=== PATIENT | female | born 1965 | race Hispanic/Latino ===

== ENCOUNTER 2018-03-25 11:55 | Outpatient (CLI) | payer BC | END 2018-03-25 11:56 | disposition home or self-care (01) | LOC: BICMAMMO 11:55 | PROVIDERS: ATTEND Internal Medicine | DX: Z12.31 Encounter for screening mammogram for malignant neoplasm of breast (principal); Z80.3 Family history of malignant neoplasm of breast | CPT/HCPCS: 77063; 77067 ==

== ENCOUNTER 2018-07-24 07:34 | Outpatient (CLI) | payer BC ==
--- NOTE | 2018-07-24 09:48 | MRI ---
MRI CERVICAL SPINE WITHOUT CONTRAST: HISTORY: Two months of neck pain, radiation down the left shoulder. COMPARISON: None. TECHNIQUE: Cervical spine MRI is performed without intravenous Gadolinium administration. Multisequential, mult iplanar imaging was performed. FINDINGS: Appropriate T1 marrow signal intensity of the cervical vertebrae. Vertebral body height is maintaine d. There is no fracture. No significant STIR hyperintensity to suggest vertebral body edema or liga mentous injury. There is 2 mm of anterolisthesis of C2 upon C3, 2.5 mm anterolisthesis of C3 upon C4. Visualized brain parenchyma, cervicomedullary junction, cervical cord, and the upper thoracic cord sandoval ve a normal size and signal intensity. Based on the sagittal STIR images, diffuse scattered nonspecific right neck lymph nodes. C2-C3: No significant disk-osteophyte complex. No significant central canal stenosis. Neural maci en are patent. C3-C4: No significant disk-osteophyte complex. No significant central canal stenosis. Minimal righ t foraminal narrowing due to degenerative change of the uncovertebral joint and facet hypertrophy. L eft neural foramen is patent. C4-5: Central disk bulge abuts the thecal sac. No significant central canal stenosis. Neural maci en are patent bilaterally. C5-C6: There is a central disk bulge that deforms the thecal sac. Mild central canal stenosis. Min imal deformity of the cervical cord. No abnormal signal intensity in the ord. Right neural foramen is patent. Minimal left foraminal narrowing due to degenerative change of the uncovertebral joint. C6-C7: Central/left paracentral disk bulge abuts the thecal sac. Ventral subarachnoid space is effa fina. There is mild deformity of the cord. Mild to moderate central canal stenosis. No signal abnor mality in the cord. Neural foramina are patent bilaterally. C7-T1: No significant central canal stenosis. Neural foramina are patent. IMPRESSION: Mild to moderate central/left paracentral canal stenosis at C6-C7. POS: [facility]
== END 2018-07-24 07:35 | disposition home or self-care (01) ==
LOC: BICMRI 07:34
PROVIDERS: ATTEND Internal Medicine
DX: M54.2 Cervicalgia (principal); M48.02 Spinal stenosis, cervical region
CPT/HCPCS: 72141

== ENCOUNTER 2018-10-10 15:48 | Outpatient (CLI) | payer OTHER | END 2018-10-10 15:49 | disposition home or self-care (01) | LOC: DTY/OP 15:48 | PROVIDERS: ATTEND Surgery | DX: E66.01 Morbid (severe) obesity due to excess calories (principal); G47.30 Sleep apnea, unspecified | CPT/HCPCS: 97802 ==

== ENCOUNTER 2018-12-02 10:55 | Outpatient (CLI) | payer BC ==
--- NOTE | 2018-12-02 11:50 | CT ---
FCT Abdomen Pelvis W Con History: [Epigastric pain] Comparison: CT abdomen and pelvis from 2014 Findings: Lung bases are clear. No pericardial effusion. Cholecystectomy. There are no dilated loops of large or small bowel. The aortic contour is nonaneurysmal. No retroperi toneal adenopathy. The spleen, pancreas, adrenal glands, kidneys are unremarkable. No acute osseous abnormality. Advanced facet arthrosis lower lumbar spine. Impression: No acute inflammatory process within the abdomen or pelvis.
[2018-12-02] MEDS ORDERED: ISOVUE-370 76%-LOCM 1 ML ONE (11:58)
== END 2018-12-02 10:56 | disposition home or self-care (01) ==
LOC: BICCT 10:55
PROVIDERS: ATTEND Internal Medicine Gastroenterology
DX: K21.9 Gastro-esophageal reflux disease without esophagitis (principal); R10.13 Epigastric pain; Z86.010 Personal history of colon polyps
CPT/HCPCS: 74177; Q9966

== ENCOUNTER 2019-03-17 16:15 | Inpatient (IN) | payer BC ==
[2019-03-18 13:00] VITALS: BMI 51.0
[2019-03-19] MEDS ORDERED: Heparin 5,000 UNITS/ML VIAL ONE (07:38)
[2019-03-19] MEDS ORDERED: Scopolamine 1.5 mg/72 hour Patch ONE (08:42)
[2019-03-19] MEDS ORDERED: Fentanyl 100 MCG/2 ML VIAL ONE ×2 (08:55→11:39)
[2019-03-19] MEDS ORDERED: Bupivacaine/Epinephrine 0.25% 30 ML VIAL ONE (08:57)
[2019-03-19] MEDS ORDERED: Dextrose 5% in Water 1,000 ML IV PRN (11:15)
[2019-03-19] MEDS ORDERED: Hydrocodone-Acetamin 15 ML UDCUP PO PRN ×2 (11:15→12:12)
[2019-03-19] MEDS ORDERED: diphenhydrAMINE 50 MG/ML VIAL IVP PRN ×2 (11:15→12:08)
[2019-03-19] MEDS ORDERED: Promethazine HCl 25 MG/ML VIAL IM PRN ×3 (11:15→12:08)
[2019-03-19] MEDS ORDERED: CEFAZOLIN 2 GM in Premix Bag 1 BAG IVPB SCH ×2 (11:15→15:30)
[2019-03-19] MEDS ORDERED: hydrALAZINE 20 MG/ML VIAL SLOW IVP PRN (11:15)
[2019-03-19] MEDS ORDERED: Dextrose 50% Abboject 50 ML SYRINGE SLOW IVP PRN (11:15)
[2019-03-19] MEDS ORDERED: Ondansetron PF 4 MG/2 ML Vial IVP PRN ×2 (11:15→12:08)
[2019-03-19] MEDS ORDERED: Meperidine HCl/PF 25 MG/ML VIAL SLOW IVP PRN (11:33)
[2019-03-19] MEDS ORDERED: Ondansetron HCl/PF 4 MG/2 ML Vial IVP PRN (11:33)
[2019-03-19] MEDS ORDERED: fentaNYL Citrate/PF 2,000 MCG in Sodium Chloride 0.9% 60 ML IV PRN (12:08)
[2019-03-19] MEDS ORDERED: diphenhydrAMINE 50 MG/ML VIAL IM PRN (12:08)
[2019-03-19] MEDS ORDERED: diphenhydrAMINE 25 MG CAP PO PRN (12:08)
[2019-03-19] MEDS ORDERED: Naloxone HCl 0.4 mg/ml Vial IV PRN (12:08)
[2019-03-19] MEDS ORDERED: Zolpidem Tartrate 5 MG TAB PO PRN (12:08)
[2019-03-19] MEDS ORDERED: Ketorolac Tromethamine 30 MG/ML VIAL ONE (12:15)
[2019-03-19] MEDS ORDERED: Metoclopramide HCl 10 MG/2 ML VIAL ONE (12:15)
[2019-03-19] MEDS ORDERED: ePHEDrine 50 MG/ML VIAL ONE (12:15)
[2019-03-19] MEDS ORDERED: Rocuronium Bromide 10 MG/ML (10ML VIAL) ONE (12:15)
[2019-03-19] MEDS ORDERED: Communication Order-Pharmacy FS SCH (12:15)
[2019-03-19] MEDS ORDERED: Dexamethasone 20 MG/5 ML VIAL ONE (12:15)
[2019-03-19] MEDS ORDERED: PROPOFOL 200 MG/20 ML VIAL ONE (12:15)
[2019-03-19] MEDS ORDERED: Ondansetron PF 4 MG/2 ML Vial ONE (12:15)
[2019-03-19] MEDS ORDERED: Lidocaine 2% PF 5 ML VIAL ONE (12:15)
[2019-03-19] MEDS ORDERED: diphenhydrAMINE 50 MG/ML VIAL ONE (12:15)
[2019-03-19] MEDS ORDERED: Glycopyrrolate 0.2 MG/ML 5 ML SYRINGE ONE ×2 (12:15)
--- NOTE | 2019-03-19 14:34 | OP ---
DATE OF PROCEDURE: 03/19/2019 PREOPERATIVE DIAGNOSES: Morbid obesity with reflux esophagitis. PROCEDURES PERFORMED: Laparoscopic Dorothy-en-Y gastric bypass with esophagogastroduodenoscopy. INDICATIONS: The patient is a 53-year-old female, morbidly obese, who has attempted multiple weight loss programs without success. She has severe reflux that is not controlled by medications with reflux esophagitis by EGD. FINDINGS: 100 cm Dorothy limb, 50 cm biliary pancreatic limb. DESCRIPTION OF PROCEDURE: After informed consent was obtained, the patient was taken to the operating room, given general endotracheal anesthesia, placed in supine position. Abdomen was prepped and draped in usual fashion. Local anesthesia was infiltrated subcutaneously and deep. 12 mm incision was performed approximately 8 inches above the xiphoid slightly to the left. Veress needle was inserted. Drop test was performed. Pneumoperitoneum was created to a volume of 2 L of carbon dioxide. Utilizing a bladeless 12 mm trocar and 0-degree laparoscope, direct visual entry into abdominal cavity was performed. Pneumoperitoneum was created to a pressure of 15 mmHg and under direct vision, two 12 mm ports were placed on the right and one on the left. The omentum was lifted up to and the ligament of Treitz was found. The jejunum was measured off 100 cm. Then, the jejunum divided transversely utilizing a linear 60 mm white load stapler. Then, the Dorothy limb was created 100 cm of jejunum was measured off and a [id number] functional end-to-end anastomosis was performed. Enterotomies were performed in each loop of bowel. The linear 60 mm white load stapler was inserted one limb in each limb of bowel, fired. There was no bleeding. The common enterotomy was then closed with a running 3-0 V-Loc. The potential hernia space of Raza was closed with a pursestring of 2-0 silk. Then, the patient was placed in steep reverse Trendelenburg position. Renetta liver retractor inserted. Left lobe of liver retracted superiorly, the lesser curvature was found. The right gastric artery visualized and just distal to it, a transverse gastrotomy was performed into the lesser sac. Then, the pouch was further developed superiorly with a series of blue graham through the angle of His. At this point, the omentum was split to accommodate the Dorothy limb. The Dorothy limb was again found. An enterotomy was performed approximately 8 cm distal to the staple line. Then, a gastrotomy was performed utilizing electrocautery followed by the [place] dissector. The linear 60 mm blue load stapler was inserted one limb in the Dorothy limb, one limb in the gastric pouch, closed, and fired. Then, the common enterotomy was closed with a running 3-0 V-Loc. Intraoperative endoscopy was then performed. The videoendoscope was inserted under direct vision and advanced into the gastric pouch and into the Dorothy limb. The anastomosis looked healthy. There was no evidence of bleeding and there was no air leak under water. The Dorothy limb and stomach decompressed. The scope was removed. Hemostasis was assured. Trocars and retractors were removed. The skin was closed with interrupted 4-0 Rapide. Dermabond was applied. The patient tolerated the procedure well and transferred to Recovery in good condition. Sponge and needle count verified correct x2. Job ID: [id number]
[2019-03-19] MEDS: Ketorolac Tromethamine 30 MG/ML VIAL IVP SCH ×3 (15:26→23:22)
[2019-03-19] MEDS: D5 1/2 NS w/20 mEq KCL 1,000 ML IV SCH ×3 (17:15→23:27)
[2019-03-19] MEDS: CEFAZOLIN 2 GM in Premix Bag 1 BAG IVPB SCH ×2 (17:15→23:21)
[2019-03-20] MEDS: Ketorolac Tromethamine 30 MG/ML VIAL IVP SCH ×2 (05:01→13:24)
[2019-03-20 06:41] LABS: #Lymphocytes 2.2 thou/uL (1.20-3.40); #Neutrophils 11.2 thou/uL (1.40-6.50); %Basophils 0.2 % (0.0-1.0); %Eosinophils 0.2 % (0.0-10.0); %Lymphocytes 15.3 % (21.0-51.0); %Monocytes 7.2 % (0.0-10.0); Hemoglobin 11.2 g/dL (12.0-16.0); Mean Corpuscular HGB CONC 31.8 g/dL (32.0-36.0); Mean Corpuscular Hemoglobin 26.4 pg (27.0-31.0); Mean Corpuscular Volume 82.9 fL (78.0-98.0); Mean Platelet Volume 9.9 fL (7.4-10.4); Platelet Count 203 thou/uL (130-400); RBC Distribution Width 12.9 % (11.5-14.5); Red Blood Cell (RBC) Count 4.26 mill/uL (4.20-5.40); White Blood Cell (WBC) Count 14.5 thou/uL (4.8-10.8)
[2019-03-20 07:01] LABS: Anion Gap 10 mmol/L (10-20); BUN (Urea Nitrogen) 16 mg/dL (9.8-20.1); Calc. Creatinine Clearance 159 mL/min (70-130); Calcium 8.7 mg/dL (7.8-10.44); Carbon Dioxide 23 mmol/L (22-29); Chloride 107 mmol/L (98-107); Estimated GFR-MDRD 78; Glucose 121 mg/dL (70-105); Potassium 4.2 mmol/L (3.5-5.1); Sodium 136 mmol/L (136-145)
[2019-03-20] MEDS ORDERED: Enoxaparin Sodium 40 MG/0.4 ML SYRINGE SC SCH (09:00)
[2019-03-20] MEDS ORDERED: Pantoprazole 40 MG VIAL IVP SCH (09:00)
[2019-03-20] MEDS ORDERED: Hydrocodone-Acetamin 15 ML UDCUP PO PRN (12:44)
--- NOTE | 2019-03-20 12:59 | RAD ---
Esophagram HISTORY: Obesity. Bariatric procedure. FINDINGS: Single column contrast evaluation shows postoperative changes consistent with gastric bypas s procedure. No evidence of obstruction or leak. Fluoroscopy time 0.3 minutes.
[2019-03-20] MEDS: D5 1/2 NS w/20 mEq KCL 1,000 ML IV SCH (13:24)
[2019-03-20 15:57] VITALS: BP 136/80; TEMP 97.9
--- NOTE | 2019-03-21 08:36 | DIS ---
DATE OF ADMISSION: 03/19/2019 DATE OF DISCHARGE: 03/20/2019 DISCHARGE DIAGNOSES: 1. Morbid obesity. 2. Severe gastroesophageal reflux. PROCEDURES DURING ADMISSION: Laparoscopic Dorothy-en-Y gastric bypass with intraoperative esophagogastroscopy and postoperative Gastrografin swallow. HOSPITAL COURSE: The patient was admitted, taken to the operating room, where she underwent a Dorothy-en-Y gastric bypass. Postoperatively, she has done well. Her x-ray is fine. She is tolerating liquids well. Pain is controlled on p.o. medications. She is discharged home on hydrocodone and Zofran. She will follow up with me in 2 weeks. Job ID: [id number]
== END 2019-03-20 18:30 | disposition home or self-care (01) | DRG 621 ==
LOC: SURG A 03-19 07:00 → SURG B 03-19 14:43
PROVIDERS: ADMIT Surgery; ATTEND Surgery
PROC: 0D164ZA Bypass Stomach to Jejunum, Percutaneous Endoscopic Approach (ICD-10-PCS; principal; 2019-03-19)
PROC: 0DJ08ZZ Inspection of Upper Intestinal Tract, Via Natural or Artificial Opening Endoscopic (ICD-10-PCS; 2019-03-19)
DX: E66.01 Morbid (severe) obesity due to excess calories (principal); K21.9 Gastro-esophageal reflux disease without esophagitis; I10 Essential (primary) hypertension; G47.30 Sleep apnea, unspecified; Z99.89 Dependence on other enabling machines and devices; D64.9 Anemia, unspecified; E03.9 Hypothyroidism, unspecified; F41.9 Anxiety disorder, unspecified; F32.9 Major depressive disorder, single episode, unspecified; Z68.43 Body mass index [BMI] 50.0-59.9, adult; Z90.49 Acquired absence of other specified parts of digestive tract; Z91.018 Allergy to other foods
CPT/HCPCS: 36415; 71046; 74241; 80048; 80053; 80076; 83036; 85025; 93005; 93010; C9113; J0131; J0690; J1100; J1200; J1644; J1650; J1885; J2001; J2405; J2704; J2765; J3010; J3490

== ENCOUNTER 2019-03-18 12:20 | Outpatient (CLI) | payer BC ==
[2019-03-18 14:08] LABS: #Basophils 0.1 thou/uL (0.0-0.2); #Eosinphils 0.3 thou/uL (0.0-0.7); #Lymphocytes 3.7 thou/uL (1.20-3.40); #Monocytes 0.6 thou/uL (0.11-0.59); #Neutrophils 4.1 thou/uL (1.40-6.50); %Basophils 1.1 % (0.0-1.0); %Eosinophils 3.7 % (0.0-10.0); %Lymphocytes 42.2 % (21.0-51.0); %Monocytes 6.3 % (0.0-10.0); %Neutrophils 46.7 % (42.0-75.0); Hemoglobin 13.6 g/dL (12.0-16.0); Mean Corpuscular HGB CONC 31.4 g/dL (32.0-36.0); Mean Corpuscular Hemoglobin 26.1 pg (27.0-31.0); Mean Corpuscular Volume 82.9 fL (78.0-98.0); Mean Platelet Volume 9.7 fL (7.4-10.4); Platelet Count 237 thou/uL (130-400); RBC Distribution Width 12.8 % (11.5-14.5); White Blood Cell (WBC) Count 8.9 thou/uL (4.8-10.8)
[2019-03-18 14:13] LABS: Hemoglobin A1c 5.5 % (4.0-6.0)
--- NOTE | 2019-03-18 14:21 | RAD ---
PA AND LATERAL CHEST: HISTORY: Preop. COMPARISON: 06/12/2014 study. FINDINGS: Heart size and mediastinum within normal limits. There is some linear scarring in the left base. No focal infiltrative process. Mild arthritic changes of the spine. IMPRESSION: No active intrathoracic disease. POS: [facility]
[2019-03-18 14:37] LABS: ALT (SGPT) 24 U/L (8-55); AST (SGOT) 21 U/L (5-34); Alkaline Phosphatase 139 U/L (40-150); Anion Gap 11 mmol/L (10-20); BUN (Urea Nitrogen) 10 mg/dL (9.8-20.1); Bilirubin, Direct 0.1 mg/dL (0.1-0.3); Bilirubin, Total 0.4 mg/dL (0.2-1.2); Calc. Creatinine Clearance 0 mL/min (70-130); Calcium 9.5 mg/dL (7.8-10.44); Carbon Dioxide 26 mmol/L (22-29); Chloride 104 mmol/L (98-107); Estimated GFR-MDRD 81; Globulin 3.6 g/dL (2.4-3.5); Glucose 75 mg/dL (70-105); Protein, Total 7.6 g/dL (6.0-8.3); Sodium 137 mmol/L (136-145)
--- NOTE | 2019-03-18 17:16 | EKG ---
Test Reason : Blood Pressure : / mmHG Vent. Rate : 047 BPM Atrial Rate : 047 BPM P-R Int : 148 ms QRS Dur : 100 ms QT Int : 510 ms P-R-T Axes : 040 076 055 degrees QTc Int : 451 ms Marked sinus bradycardia Abnormal ECG When compared with ECG of 04-OCT-2013 14:04, No significant change was found Confirmed by DR. Dev GRIFFIN ([id number]) on 03/18/2019 5:16:02 PM Referred By: CELIA Confirmed By:DR. Dev GRIFFIN
== END 2019-03-18 12:21 | disposition home or self-care (01) ==
LOC: LABBT 12:20
PROVIDERS: ATTEND Surgery
DX: Z01.818 Encounter for other preprocedural examination (principal); E66.01 Morbid (severe) obesity due to excess calories
CPT/HCPCS: 71046; 80053; 80076; 83036; 85025; 93005; 93010

== ENCOUNTER 2019-04-18 14:39 | Outpatient (CLI) | payer BC ==
--- NOTE | 2019-04-22 06:47 | MMO ---
Bilateral MAMMO Bilat Screen DDI+JAYY. CLINICAL HISTORY: Patient is 53 years old and is seen for screening. The patient has the following family history of breast cancer: maternal aunt, at age 30 and cousin female, at age 27. The patient has no personal history of cancer. VIEWS: The views performed were: bilateral craniocaudal; bilateral craniocaudal with tomosynthesis; bilateral mediolateral oblique with tomosynthesis; and left mediolateral oblique. FILMS COMPARED: The present examination has been compared to prior imaging studies performed at [facility] on 03/25/2018, and at [facility] on 12/24/2013. MAMMOGRAM FINDINGS: There are scattered fibroglandular densities. There are stable intramammary lymph nodes seen in both breasts. There are no suspicious masses, suspicious calcifications, or new areas of architectural distortion. IMPRESSION: THERE IS NO MAMMOGRAPHIC EVIDENCE OF MALIGNANCY. A ROUTINE FOLLOW-UP MAMMOGRAM IN 1 YEAR IS RECOMMENDED. THE RESULTS OF THIS EXAM WERE SENT TO THE PATIENT. ACR BI-RADS Category 2 - Benign finding MAMMOGRAPHY NOTE: 1. A negative mammogram report should not delay a biopsy if a dominant of clinically suspicious mass is present. 2. Approximately 10% to 15% of breast cancers are not detected by mammography. 3. Adenosis and dense breasts may obscure an underlying neoplasm. Reported by: JOHN BUTTS MD Electonically Signed: [id number]
== END 2019-04-18 14:40 | disposition home or self-care (01) ==
LOC: BICMAMMO 14:39
PROVIDERS: ATTEND Internal Medicine
DX: Z12.31 Encounter for screening mammogram for malignant neoplasm of breast (principal); Z80.3 Family history of malignant neoplasm of breast
CPT/HCPCS: 77063; 77067

== ENCOUNTER 2019-05-19 12:03 | Emergency (ER) | payer BC ==
[2019-05-19 12:55] LABS: Bacteria/HPF None Seen HPF (None Seen); Bilirubin Negative (Negative); Blood, Urine Negative (Negative); Clarity Clear (Clear); Glucose, Urine (Dipstick) Normal (Negative); Leukocyte Negative Leu/uL (Negative); Nitrite Negative (Negative); Protein, Urine (Dipstick) 30 mg/dL (Neg-Trace); Squamous Epithelial 0-3 HPF (0-3); WBC/HPF 0-3 HPF (0-3)
[2019-05-19 12:56] LABS: #Eosinphils 0.1 thou/uL (0.0-0.7); #Monocytes 0.4 thou/uL (0.11-0.59); #Neutrophils 7.4 thou/uL (1.40-6.50); %Basophils 0.3 % (0.0-1.0); %Eosinophils 0.9 % (0.0-10.0); %Lymphocytes 20.6 % (21.0-51.0); %Monocytes 3.9 % (0.0-10.0); %Neutrophils 74.4 % (42.0-75.0); Hemoglobin 12.9 g/dL (12.0-16.0); Mean Corpuscular HGB CONC 33.1 g/dL (32.0-36.0); Mean Corpuscular Hemoglobin 27.7 pg (27.0-31.0); Mean Corpuscular Volume 83.6 fL (78.0-98.0); Mean Platelet Volume 10.1 fL (7.4-10.4); Platelet Count 201 thou/uL (130-400); Red Blood Cell (RBC) Count 4.67 mill/uL (4.20-5.40); White Blood Cell (WBC) Count 9.9 thou/uL (4.8-10.8)
[2019-05-19 13:06] LABS: Calcium Oxalate Crystals 2+ HPF (None Seen); RBC/HPF 0-3 HPF (0-3)
[2019-05-19] MEDS ORDERED: ISOVUE-370 76%-LOCM 1 ML ONE (13:17)
[2019-05-19 13:20] LABS: ALT (SGPT) 24 U/L (8-55); AST (SGOT) 23 U/L (5-34); Albumin 4.1 g/dL (3.5-5.0); Alkaline Phosphatase 119 U/L (40-150); Anion Gap 10 mmol/L (10-20); BUN (Urea Nitrogen) 18 mg/dL (9.8-20.1); Bilirubin, Total 0.3 mg/dL (0.2-1.2); Calc. Creatinine Clearance 0 mL/min (70-130); Calcium 9.7 mg/dL (7.8-10.44); Carbon Dioxide 27 mmol/L (22-29); Chloride 105 mmol/L (98-107); Estimated GFR-MDRD 79; Globulin 3.4 g/dL (2.4-3.5); Glucose 129 mg/dL (70-105); Lipase 7 U/L (8-78); Potassium 3.8 mmol/L (3.5-5.1); Protein, Total 7.5 g/dL (6.0-8.3); Sodium 138 mmol/L (136-145)
[2019-05-19] MEDS ORDERED: Ondansetron PF 4 MG/2 ML Vial ONE (15:54)
[2019-05-19] MEDS ORDERED: Ketorolac Tromethamine 30 MG/ML VIAL ONE (15:54)
[2019-05-19] MEDS ORDERED: Thiamine 100 MG TAB ONE (16:17)
--- NOTE | 2019-05-19 17:01 | CT ---
CT ABDOMEN PELVIS WITH ORAL AND IV CONTRAST: HISTORY: Abdominal pain, nausea and vomiting, diarrhea. No fever. Decreased urine output but no dysur ia COMPARISON: 12/02/2018 FINDINGS: The lung bases are clear. The patient is post cholecystectomy and gastric surgery. The liver, spleen, pancreas, adrenal glands and kidneys are normal. Retroaortic left renal vein is seen. There is no evidence of aneurysmal dilatation of the abdominal aorta. Degenerative changes are present in the spi ne. No free air, free fluid or lymphadenopathy is noted in the abdomen or pelvis. The small bowel loops a re not abnormally dilated. A normal-appearing appendix is present. IMPRESSION: No acute process.
== END 2019-05-19 17:55 | disposition home or self-care (01) ==
LOC: ERS 12:03
DX: K52.9 Noninfective gastroenteritis and colitis, unspecified (principal); E03.9 Hypothyroidism, unspecified; F41.9 Anxiety disorder, unspecified; R11.2 Nausea with vomiting, unspecified
CPT/HCPCS: 36415; 74177; 80053; 81003; 81015; 83690; 85025; 96361; 96365; 96375; J1885; J2405; J3411; J3490; Q9966

== ENCOUNTER 2019-11-25 15:32 | Emergency (ER) | payer BC ==
[2019-11-25] MEDS ORDERED: Iopamidol 370 76% 100 ML VIAL ONE (15:41)
[2019-11-25] MEDS ORDERED: Ondansetron PF 4 MG/2 ML Vial ONE (15:50)
[2019-11-25] MEDS ORDERED: Mag-Al 1200 mg/1200 mg/30 ML UDCUP ONE (15:51)
[2019-11-25] MEDS ORDERED: Morphine 4 MG/ML VIAL ONE (15:51)
[2019-11-25] MEDS ORDERED: Lidocaine Viscous Sol 2% 15 ml UD Cup ONE (15:51)
[2019-11-25] MEDS ORDERED: Pantoprazole 40 MG VIAL ONE (15:51)
[2019-11-25 15:55] LABS: #Basophils 0.1 thou/uL (0.0-0.2); #Eosinphils 0.4 thou/uL (0.0-0.7); #Lymphocytes 5.3 thou/uL (1.20-3.40); #Monocytes 0.8 thou/uL (0.11-0.59); %Basophils 1.1 % (0.0-1.0); %Eosinophils 3.7 % (0.0-10.0); %Lymphocytes 45.5 % (21.0-51.0); %Monocytes 7.1 % (0.0-10.0); %Neutrophils 42.6 % (42.0-75.0); Hemoglobin 14.6 g/dL (12.0-16.0); Mean Corpuscular HGB CONC 33.2 g/dL (32.0-36.0); Mean Corpuscular Volume 87.3 fL (78.0-98.0); Mean Platelet Volume 10.2 fL (7.4-10.4); Platelet Count 252 thou/uL (130-400); RBC Distribution Width 12.8 % (11.5-14.5); Red Blood Cell (RBC) Count 5.04 mill/uL (4.20-5.40); White Blood Cell (WBC) Count 11.7 thou/uL (4.8-10.8)
--- NOTE | 2019-11-25 16:11 | RAD ---
PORTABLE CHEST 1 VIEW: Date: 11/25/2019 Time: 1605 hours HISTORY: Chest pain. FINDINGS: Comparison made with exam of 10/04/2013. The heart size is normal. The lungs are well expanded without lobar consolidation, pneumothoraces, or pleural effusions. IMPRESSION: No radiographic evidence of acute cardiopulmonary process. POS: [facility]
[2019-11-25 16:18] LABS: ALT (SGPT) 54 U/L (8-55); AST (SGOT) 74 U/L (5-34); Albumin 4.5 g/dL (3.5-5.0); Alkaline Phosphatase 130 U/L (40-110); Anion Gap 13 mmol/L (10-20); BUN (Urea Nitrogen) 19 mg/dL (9.8-20.1); Bilirubin, Total 0.4 mg/dL (0.2-1.2); Calc. Creatinine Clearance 0 mL/min (70-130); Calcium 9.7 mg/dL (7.8-10.44); Carbon Dioxide 27 mmol/L (22-29); Chloride 104 mmol/L (98-107); Estimated GFR-MDRD 73; Globulin 3.4 g/dL (2.4-3.5); Glucose 113 mg/dL (70-105); Potassium 3.7 mmol/L (3.5-5.1); Protein, Total 7.9 g/dL (6.0-8.3); Sodium 140 mmol/L (136-145)
[2019-11-25] MEDS ORDERED: Sucralfate 1 GM/10 ML UDCUP ONE (16:55)
--- NOTE | 2019-11-25 16:59 | CT ---
CTA CHEST WITH IV CONTRAST AND 3D POSTPROCESSING CT ABDOMEN WITH IV CONRAST AND 3D POSTPROCESSING 11/25/19 HISTORY: Epigastric pain radiating to the back. FINDINGS: The thoracoabdominal aorta demonstrates good contrast enhancement without aneurysmal dissection. The pulmonary arterial vasculature is also well opacified without filling defects to suggest pulmonary em bolism. No pleural or pericardial effusions are identified. No mediastinal, hilar, or axillary mass o r lymphadenopathy seen. No pneumothoraces, lobar consolidation, lung nodules or masses are seen. Ther e are mild patchy ground glass opacities in the right lung base and left mid and lower lung zones. There are postop changes of cholecystectomy and gastric surgery. No hyperenhancing liver mass is seen . The pancreas, adrenal glands and kidneys are normal. There is incomplete enhancement of the spleen, due to scanning during the arterial phase. A retroaortic left renal vein is present. No free air, fr ee fluid or lymphadenopathy is seen in the abdomen. There are degenerative changes in the thoracolumb ar spine. A normal appearing appendix is seen. IMPRESSION: No evidence of aortic dissection. POS: [facility]
--- NOTE | 2019-11-27 11:13 | EKG ---
Test Reason : Blood Pressure : / mmHG Vent. Rate : 052 BPM Atrial Rate : 052 BPM P-R Int : 126 ms QRS Dur : 094 ms QT Int : 472 ms P-R-T Axes : 010 069 055 degrees QTc Int : 438 ms Sinus bradycardia Otherwise normal ECG Confirmed by SAKINA WOOD, KASEY Diaz ([id number]), writer editor CAROL CH ([id number]) on 11/27/2019 11:12:42 AM Referred By: Confirmed By:KASEY PRESLEY MD
== END 2019-11-25 17:18 | disposition home or self-care (01) ==
LOC: ERS 15:32
DX: R10.13 Epigastric pain (principal); R11.0 Nausea; E03.9 Hypothyroidism, unspecified; F41.9 Anxiety disorder, unspecified; K21.9 Gastro-esophageal reflux disease without esophagitis; I10 Essential (primary) hypertension
CPT/HCPCS: 71045; 71275; 72191; 74175; 80053; 84484; 85025; 93005; 96374; 96375; C9113; J2270; J2405; Q9967

== ENCOUNTER 2020-04-23 05:34 | Day surgery (SDC) | payer BC ==
[2020-04-22 10:35] VITALS: BMI 38.7
[2020-04-23] MEDS ORDERED: Midazolam HCl 2 mg/2 ml Vial ONE (06:17)
[2020-04-23] MEDS ORDERED: Fentanyl 100 MCG/2 ML VIAL ONE ×6 (06:17→09:38)
[2020-04-23] MEDS ORDERED: Bupivacaine PF 0.5% 30 ML VIAL ONE (06:28)
--- NOTE | 2020-04-23 08:55 | RAD ---
Exam:Exam: Intraprocedure fluoroscopy HISTORY: ORIF left ankle COMPARISON: None FINDINGS: Single fluoroscopic view demonstrates internal fixation involving the medial malleolus and lateral malleolus. IMPRESSION: Internal fixation hardware placement.
[2020-04-23] MEDS ORDERED: Ketorolac Tromethamine 30 MG/ML VIAL ONE (09:00)
--- NOTE | 2020-04-23 09:38 | OP ---
DATE OF PROCEDURE: 04/23/2020 PREOPERATIVE DIAGNOSIS: Left bimalleolar ankle fracture. POSTOPERATIVE DIAGNOSIS: Left bimalleolar ankle fracture. PROCEDURE PERFORMED: Open reduction and internal fixation of left lateral and medial malleolus. ANESTHESIA: General. LEMON GROWER: Moustapha Isbell PA-C TOURNIQUET TIME: 58 minutes at 300 mmHg. IMPLANT: Synthes seven hole 1/3 tubular plate. COMPLICATIONS: None. DRAINS: None. SPECIMEN: None. OUTCOME: Near-anatomic alignment. INDICATIONS FOR PROCEDURE: The patient is a 54-year-old lady status post ground level fall sustaining a displaced left bimalleolar ankle fracture. After discussion with the patient including risks and benefits, we decided to proceed with open reduction and internal fixation. Informed consent has been obtained. DESCRIPTION OF PROCEDURE: The patient was brought to the operating room and a time-out performed followed by induction of general anesthesia. Next, a sterile prep and drape was performed to the left lower extremity. The limb was then exsanguinated with Esmarch bandage, tourniquet inflated to 300 mmHg. Next, a vertical incision was made over the lateral malleolus after skin was sharply incised. Dissection was carried down bluntly exposing the fracture. The fracture hematoma was lavaged from the wound and minimal subperiosteal dissection performed to expose the fracture edges so the fracture could be reduced in anatomic alignment. This was done and held in place with bone tenaculum followed by an anterior posterior interfragmentary compression screw. Next, a seven hole 1/3 tubular neutralization plate was applied to lateral cortex of the distal fibula. This held in place with three cancellous screws distally and three cortical screws proximally. AP and lateral C-arm images were then obtained that showed anatomic alignment of the ankle. The medial malleolus did have a fracture that reduced with the lateral malleolus; however, given its location and the initial displacement, we did choose to proceed with stabilization of this fracture. A medial incision was then made. Blunt dissection carried down to the level of the fracture. The periosteum was released from the fracture edge and the fracture reduced and held in place with bone tenaculum. This was followed by passage of two 4.0 mm partially-threaded cancellous screws from the tip of the medial malleolus up obliquely into the distal tibial metaphysis. Final AP and lateral C-arm images were then obtained that showed anatomic alignment of the fracture. The two incisions were irrigated with normal saline, then closed in layers with 0 Vicryl deep, followed by 2-0 Vicryl, and nylon for the skin. Xeroform gauze, Webril, and fiberglass splint were then applied to the ankle. Tourniquet was let down with completion of dressing with total time of 58 minutes. There were no complications. The patient tolerated the procedure well. Job ID: [id number]
[2020-04-23] MEDS ORDERED: Glycopyrrolate 0.2 MG/ML 5 ML SYRINGE ONE (10:09)
[2020-04-23] MEDS ORDERED: Lidocaine 1% PF 5 ML VIAL ONE (10:09)
[2020-04-23] MEDS ORDERED: Ondansetron PF 4 MG/2 ML Vial ONE (10:09)
[2020-04-23] MEDS ORDERED: Dexamethasone 20 MG/5 ML VIAL ONE (10:09)
[2020-04-23] MEDS ORDERED: Bupivacaine HCl 0.5%/Epinephrine 1:200,000/PF 30 ml Vial ONE (10:09)
[2020-04-23] MEDS ORDERED: PROPOFOL 200 MG/20 ML VIAL ONE (10:09)
== END 2020-04-23 11:22 | disposition home or self-care (01) ==
LOC: SDC 05:34
PROVIDERS: ATTEND Orthopaedic Surgery
PROC: 0QSH04Z Reposition Left Tibia with Internal Fixation Device, Open Approach (ICD-10-PCS; principal; 2020-04-23)
PROC: 0QSK04Z Reposition Left Fibula with Internal Fixation Device, Open Approach (ICD-10-PCS; principal; 2020-04-23)
DX: S82.842A Displaced bimalleolar fracture of left lower leg, initial encounter for closed fracture (principal); D64.9 Anemia, unspecified; E07.9 Disorder of thyroid, unspecified; F41.9 Anxiety disorder, unspecified; K21.9 Gastro-esophageal reflux disease without esophagitis; Z79.899 Other long term (current) drug therapy; Z91.018 Allergy to other foods
CPT/HCPCS: 76000; C1713; J0670; J0690; J1100; J1885; J2250; J2405; J2704; J3010; S0020

== ENCOUNTER 2021-08-18 17:20 | Emergency (ER) | payer BC ==
[2021-08-18] MEDS ORDERED: Lidocaine Viscous Sol 2% 15 ml UD Cup ONE (17:58)
[2021-08-18] MEDS ORDERED: Mag-Al 1200 mg/1200 mg/30 ML UDCUP ONE (17:58)
[2021-08-18] MEDS ORDERED: Ondansetron PF 4 MG/2 ML Vial ONE (18:13)
[2021-08-18 18:14] LABS: Mean Corpuscular HGB CONC 32.7 g/dL (32.0-36.0); Mean Corpuscular Hemoglobin 28.1 pg (27.0-31.0); Mean Corpuscular Volume 85.9 fL (78.0-98.0); Mean Platelet Volume 8.9 fL (7.4-10.4); Platelet Count 253 thou/uL (130-400); RBC Distribution Width 11.9 % (11.5-14.5); Red Blood Cell (RBC) Count 5.32 mill/uL (4.20-5.40); White Blood Cell (WBC) Count 9.4 thou/uL (4.8-10.8)
[2021-08-18 18:20] LABS: ALT (SGPT) 32 U/L (8-55); AST (SGOT) 26 U/L (5-34); Albumin 4.5 g/dL (3.5-5.0); Alkaline Phosphatase 195 U/L (40-110); Anion Gap 14 mmol/L (10-20); BUN (Urea Nitrogen) 10 mg/dL (9.8-20.1); Bilirubin, Total 0.4 mg/dL (0.2-1.2); Calc. Creatinine Clearance 0 mL/min (70-130); Calcium 10.1 mg/dL (7.8-10.44); Carbon Dioxide 25 mmol/L (22-29); Chloride 104 mmol/L (98-107); Globulin 3.7 g/dL (2.4-3.5); Glucose 98 mg/dL (70-105); Lipase 6 U/L (8-78); Protein, Total 8.2 g/dL (6.0-8.3); Sodium 139 mmol/L (136-145)
[2021-08-18 18:27] LABS: Eosinophils 5 % (0-10); Lymphocytes 48 % (21-51); MDiff Complete? YES; Monocytes 10 % (0-10); Neutrophil 33 % (42-75); Platelet Morphology Comment Appears Adequate; RBC Morphology Normal; Reactive Lymphocytes 2 % (0-10)
[2021-08-18 19:56] LABS: Bilirubin Negative (Negative); Blood, Urine Negative (Negative); Clarity Clear (Clear); Glucose, Urine (Dipstick) Normal (Negative); Ketone, Urine Negative (Negative); Leukocyte Negative Leu/uL (Negative); Nitrite Negative (Negative); Protein, Urine (Dipstick) Negative (Neg-Trace); Specific Gravity, Urine 1.004 (1.002-1.036); Urobilinogen Normal mg/dL (Less than 2); pH, Urine 5.5 (5.0-9.0)
[2021-08-18 19:59] LABS: Pregnancy Test - Urine (BHCG) Negative (Negative); Pregu Control Background? CLEAR/WHITE (CLR/WHITE); Pregu Control Bar Appear? YES (CONTROL BAR); Specific Gravity 1.004 (1.002-1.036)
== END 2021-08-18 20:28 | disposition home or self-care (01) ==
LOC: ERS 17:20
DX: K29.00 Acute gastritis without bleeding (principal); I10 Essential (primary) hypertension; E03.9 Hypothyroidism, unspecified; Z79.899 Other long term (current) drug therapy
CPT/HCPCS: 80053; 81003; 81025; 83690; 84484; 85025; 93005; 96374; J2405

== ENCOUNTER 2021-08-20 09:50 | Emergency (ER) | payer BC ==
[~2021-08-20 09:50] MED LIST: Iopamidol-370 76% 500 ML 1 ML ONE
[2021-08-20 10:26] LABS: #Basophils 0.1 thou/uL (0.0-0.2); #Eosinphils 0.4 thou/uL (0.0-0.7); #Monocytes 0.7 thou/uL (0.11-0.59); #Neutrophils 2.5 thou/uL (1.40-6.50); %Basophils 1.3 % (0.0-1.0); %Eosinophils 6.7 % (0.0-10.0); %Lymphocytes 35.5 % (21.0-51.0); %Monocytes 11.6 % (0.0-10.0); Hemoglobin 13.4 g/dL (12.0-16.0); Mean Corpuscular HGB CONC 33.1 g/dL (32.0-36.0); Mean Corpuscular Hemoglobin 28.9 pg (27.0-31.0); Mean Corpuscular Volume 87.1 fL (78.0-98.0); Mean Platelet Volume 8.9 fL (7.4-10.4); Platelet Count 230 thou/uL (130-400); RBC Distribution Width 11.9 % (11.5-14.5); Red Blood Cell (RBC) Count 4.65 mill/uL (4.20-5.40); White Blood Cell (WBC) Count 5.6 thou/uL (4.8-10.8)
[2021-08-20] MEDS ORDERED: Morphine 4 MG/ML VIAL ONE (10:30)
[2021-08-20] MEDS ORDERED: Ondansetron PF 4 MG/2 ML Vial ONE (10:31)
[2021-08-20 10:50] LABS: ALT (SGPT) 24 U/L (8-55); AST (SGOT) 27 U/L (5-34); Albumin 3.8 g/dL (3.5-5.0); Alkaline Phosphatase 161 U/L (40-110); Anion Gap 11 mmol/L (10-20); BUN (Urea Nitrogen) 14 mg/dL (9.8-20.1); Bilirubin, Total 0.3 mg/dL (0.2-1.2); CK (CPK) 57 U/L (29-168); Calc. Creatinine Clearance 0 mL/min (70-130); Calcium 9.6 mg/dL (7.8-10.44); Carbon Dioxide 23 mmol/L (22-29); Chloride 108 mmol/L (98-107); Globulin 3.6 g/dL (2.4-3.5); Glucose 107 mg/dL (70-105); INR-International Normal Ratio 1.2; Lipase 5 U/L (8-78); Potassium 4.2 mmol/L (3.5-5.1); Protein, Total 7.4 g/dL (6.0-8.3); Prothrombin Time 14.9 sec (12.0-14.7); Sodium 138 mmol/L (136-145)
[2021-08-20 10:51] LABS: PTT 31.6 sec (22.9-36.1)
[2021-08-20 11:05] LABS: Bilirubin Negative (Negative); Blood, Urine Negative (Negative); Clarity Clear (Clear); Glucose, Urine (Dipstick) Normal (Negative); Ketone, Urine Negative (Negative); Leukocyte Negative Leu/uL (Negative); Nitrite Negative (Negative); Protein, Urine (Dipstick) Negative (Neg-Trace); Specific Gravity, Urine 1.006 (1.002-1.036); Urobilinogen Normal mg/dL (Less than 2); pH, Urine 6.5 (5.0-9.0)
[2021-08-20] MEDS ORDERED: Pantoprazole 40 MG VIAL ONE (11:10)
[2021-08-20] MEDS ORDERED: Water For Inject, Bacteriostat 30 ML ONE (11:11)
[2021-08-20 11:28] LABS: Lactic Acid 0.9 mmol/L (0.5-2.2)
[2021-08-20] MEDS ORDERED: Thiamine HCl 200 MG/2 ML VIAL SLOW IVP SCH (11:30)
== END 2021-08-20 13:10 | disposition home or self-care (01) ==
LOC: ERS 09:50
DX: K29.00 Acute gastritis without bleeding (principal); I10 Essential (primary) hypertension; E03.9 Hypothyroidism, unspecified
CPT/HCPCS: 36415; 74177; 80053; 81003; 82550; 83605; 83690; 83880; 85025; 85610; 85730; 93005; 96374; 96375; C9113; J2270; J2405; J3411; Q9967

== ENCOUNTER 2022-06-10 10:27 | Emergency (ER) | payer BC ==
[2022-06-10 10:54] LABS: #Basophils 0.1 thou/uL (0.0-0.2); #Eosinphils 0.5 thou/uL (0.0-0.7); #Lymphocytes 2.4 thou/uL (1.20-3.40); #Monocytes 0.6 thou/uL (0.11-0.59); #Neutrophils 2.7 thou/uL (1.40-6.50); %Basophils 1.4 % (0.0-1.0); %Eosinophils 7.3 % (0.0-10.0); %Lymphocytes 37.9 % (21.0-51.0); %Monocytes 10.1 % (0.0-10.0); %Neutrophils 43.3 % (42.0-75.0); Mean Corpuscular HGB CONC 33.6 g/dL (32.0-36.0); Mean Corpuscular Hemoglobin 29.6 pg (27.0-31.0); Mean Corpuscular Volume 88.2 fL (78.0-98.0); Mean Platelet Volume 8.9 fL (7.4-10.4); Platelet Count 221 thou/uL (130-400); RBC Distribution Width 12.4 % (11.5-14.5); Red Blood Cell (RBC) Count 4.39 mill/uL (4.20-5.40); White Blood Cell (WBC) Count 6.3 thou/uL (4.8-10.8)
[2022-06-10 11:12] LABS: Anion Gap 12 mmol/L (10-20); BUN (Urea Nitrogen) 15 mg/dL (9.8-20.1); Bilirubin, Total 0.3 mg/dL (0.2-1.2); Calc. Creatinine Clearance 0 mL/min (70-130); Calcium 9.4 mg/dL (7.8-10.44); Carbon Dioxide 25 mmol/L (22-29); Chloride 107 mmol/L (98-107); Estimated GFR 92; Glucose 99 mg/dL (70-105); Potassium 4.6 mmol/L (3.5-5.1); Sodium 139 mmol/L (136-145)
[2022-06-10 11:13] LABS: ALT (SGPT) 18 U/L (8-55); AST (SGOT) 23 U/L (5-34); Albumin 3.9 g/dL (3.5-5.0); Alkaline Phosphatase 113 U/L (40-110); Globulin 3.1 g/dL (2.4-3.5)
[2022-06-10] MEDS ORDERED: Meclizine HCl 25 MG TAB ONE (12:28)
[2022-06-10] MEDS ORDERED: Prochlorperazine Edisylate 10 MG in Sodium Chloride 0.9% 50 ML IVPB SCH (12:45)
== END 2022-06-10 13:29 | disposition home or self-care (01) ==
LOC: ERS 10:27
DX: R42 Dizziness and giddiness (principal); R00.1 Bradycardia, unspecified; I10 Essential (primary) hypertension; E03.9 Hypothyroidism, unspecified; Z79.890 Hormone replacement therapy; Z79.899 Other long term (current) drug therapy
CPT/HCPCS: 36415; 71045; 80053; 84484; 85025; 93005; J0780

== ENCOUNTER 2023-07-11 15:51 | Outpatient (CLI) | payer BC | END 2023-07-11 15:52 | disposition home or self-care (01) | LOC: BICMAMMO 15:51 | PROVIDERS: ATTEND Internal Medicine | DX: Z12.31 Encounter for screening mammogram for malignant neoplasm of breast (principal); Z80.3 Family history of malignant neoplasm of breast | CPT/HCPCS: 77063; 77067 ==

== ENCOUNTER 2024-03-25 10:45 | Emergency (ER) | payer BC ==
[2024-03-25 12:04] LABS: #Basophils 0.04 10x3/uL (0.0-0.2); %Basophils 0.5 % (0.0-1.0); %Eosinophils 3.5 % (0.0-10.0); %Neutrophils 66.7 % (42.0-75.0); Hematocrit 41.1 % (36.0-47.0); Hemoglobin 13.6 g/dL (12.0-16.0); Mean Corpuscular HGB CONC 33.1 g/dL (32.0-36.0); Mean Corpuscular Hemoglobin 26.9 pg (27.0-31.0); Mean Corpuscular Volume 81.4 fL (78.0-98.0); Mean Platelet Volume 11.6 fL (7.4-10.4); Platelet Count 242 10x3/uL (130-400); RBC Distribution Width 14.2 % (11.5-14.5); Red Blood Cell (RBC) Count 5.05 mill/uL (4.20-5.40)
[2024-03-25] MEDS ORDERED: Aspirin Chewable 81 MG TAB ONE (12:21)
[2024-03-25 12:27] LABS: ALT (SGPT) 57 U/L (8-55); AST (SGOT) 115 U/L (5-34); Albumin 3.7 g/dL (3.5-5.0); Alkaline Phosphatase 155 U/L (40-110); Anion Gap 12 mmol/L (10-20); BUN (Urea Nitrogen) 11 mg/dL (9.8-20.1); Bilirubin, Total 0.4 mg/dL (0.2-1.2); Calc. Creatinine Clearance 0 mL/min (70-130); Calcium 9.4 mg/dL (7.8-10.44); Carbon Dioxide 24 mmol/L (22-29); Chloride 105 mmol/L (98-107); Estimated GFR 89; Globulin 3.7 g/dL (2.4-3.5); Glucose 100 mg/dL (70-105); Lipase 76 U/L (8-78); Potassium 4.4 mmol/L (3.5-5.1); Protein, Total 7.4 g/dL (6.0-8.3); Sodium 137 mmol/L (136-145)
[2024-03-25 12:42] LABS: Bilirubin Negative (Negative); Blood, Urine Negative (Negative); CAUTI Indications for Culture Dysuria,urgency,freq; Clarity Clear (Clear); Glucose, Urine (Dipstick) Normal (Negative); Ketone, Urine Negative (Negative); Leukocyte 500 Leu/uL (Negative); Nitrite Negative (Negative); Protein, Urine (Dipstick) Negative (Neg-Trace); RBC/HPF 0-3 HPF (0-3); Specific Gravity, Urine 1.002 (1.002-1.036); Squamous Epithelial 0-3 HPF (0-3); Urobilinogen Normal mg/dL (Less than 2); WBC/HPF 0-3 HPF (0-3); pH, Urine 6.5 (5.0-9.0)
[2024-03-25 12:43] LABS: Bacteria/HPF 1+ HPF (None Seen); Urine Culture Reflex No No
[2024-03-25] MEDS ORDERED: Lidocaine 2% Viscous 10 mL, Alum & Magn 30 mL SSW SCH (12:45)
[2024-03-25 12:49] LABS: Troponin I Less than 0.010 ng/mL (< 0.028)
[2024-03-25] MEDS ORDERED: Iopamidol-370 76% 500 ML MDV (1 ML CHARGE) ONE (15:17)
== END 2024-03-25 13:16 | disposition home or self-care (01) ==
LOC: ERS 10:45
DX: R10.13 Epigastric pain (principal); I10 Essential (primary) hypertension
CPT/HCPCS: 74177; 80053; 81001; 83690; 84484; 85025; 93005; Q9967

== ENCOUNTER 2025-05-14 12:41 | Outpatient (CLI) | payer BC | END 2025-05-14 12:42 | disposition home or self-care (01) | LOC: BICMAMMO 12:41 | PROVIDERS: ATTEND Internal Medicine | DX: Z12.31 Encounter for screening mammogram for malignant neoplasm of breast (principal); Z80.3 Family history of malignant neoplasm of breast | CPT/HCPCS: 77063; 77067 ==